=== PATIENT | female | born 1960 | race Two or more races ===

== ENCOUNTER 2024-08-19 06:24 | Day surgery (SDC) | payer OTHER, SELFPAY | END 2024-08-19 09:11 | disposition home or self-care (01) | LOC: GI 06:24 | PROVIDERS: ATTENDING PHYSICIAN Internal Medicine Gastroenterology; FAMILY PHYSICIAN Internal Medicine | DX: K62.89 Other specified diseases of anus and rectum (principal); K51.211 Ulcerative (chronic) proctitis with rectal bleeding; R19.4 Change in bowel habit; K57.30 Diverticulosis of large intestine without perforation or abscess without bleeding | CPT/HCPCS: 45380; 88305 ==